=== PATIENT | female | born 1960 | race Caucasian/White ===

== ENCOUNTER 2016-11-01 06:45 | Emergency (ER) | payer OTHER ==
[~2016-11-01] VITALS: Ht 152.4 cm; Wt 63.6 kg
[~2016-11-01 06:45] MED LIST: AMLO10TA4 PO; CLON0.1T; LISI-170
[2016-11-01 06:55] VITALS: BP 171/102
[2016-11-01] MEDS ORDERED: OXYcodone/APAP 5/325MG TABLET PO ONE (07:30)
[2016-11-01] MEDS ORDERED: ONDANSETRON ODT 4 MG PO ONE (07:30)
[2016-11-01] MEDS ORDERED: OXYcodone/APAP 5/325MG TABLET ONE (07:36)
[2016-11-01] MEDS ORDERED: ONDANSETRON ODT 4 MG ONE (07:36)
== END 2016-11-01 07:45 | disposition home or self-care (01) ==
LOC: ED 07:39
DX: H60.13 Cellulitis of external ear, bilateral (principal); H69.83 Other specified disorders of Eustachian tube, bilateral; I10 Essential (primary) hypertension; Z90.710 Acquired absence of both cervix and uterus; Z88.2 Allergy status to sulfonamides
CPT/HCPCS: 99283; Q0162